=== PATIENT | male | born 1965 | race African-American/Black ===

== ENCOUNTER 2020-12-05 10:00 | Emergency (ER) | payer SELFPAY ==
[2020-12-05] MEDS ORDERED: Ketorolac Tromethamine 30 MG/ML VIAL ONE (12:57)
== END 2020-12-05 13:05 | disposition home or self-care (01) ==
LOC: CSHERS 10:00
DX: M10.9 Gout, unspecified (principal); I10 Essential (primary) hypertension
CPT/HCPCS: 36415; 84550; 96372; J1885

== ENCOUNTER 2022-05-23 08:19 | Emergency (ER) | payer OTHER, SELFPAY | END 2022-05-23 10:51 | disposition home or self-care (01) | LOC: CSHERS 08:19 | DX: S33.5XXA Sprain of ligaments of lumbar spine, initial encounter (principal); S13.4XXA Sprain of ligaments of cervical spine, initial encounter; S43.402A Unspecified sprain of left shoulder joint, initial encounter; I10 Essential (primary) hypertension; M10.9 Gout, unspecified; V89.2XXA Person injured in unspecified motor-vehicle accident, traffic, initial encounter | CPT/HCPCS: 72125; 72131 ==